=== PATIENT | male | born 1955 | race Caucasian/White ===

== ENCOUNTER 2020-04-17 10:29 | Outpatient (CLI) | payer MEDICARE, SELFPAY ==
--- NOTE | 2020-04-23 14:03 | WPDPFTINT ---
PFT Interpretation PFT Interpretation: This PFT met all criteria for ATS standards and reproducibility FEV/FVC 75% of predicted FEV1 105% of predicted FVC 97% of predicted TLC 129% of predicted or 8.85 liters RV 173% RV/TLC 48% DLCO 84% when adjusted for alveolar volume but not adjusted for hemoglobin Flow volume loops were normal Impression: No significant obstruction but hyperinflation and air trapping are present. This may indicate COPD or Asthma. Clinical correlation is advised.
--- NOTE | 2020-04-27 12:58 | WPDPFTINT ---
PFT Interpretation PFT Interpretation: DOS: 04/17/2020 REQUESTING: Dr. Kristie Kennedy REASON FOR TESTING: Chest pain PULMONARY FUNCTION TESTS Results are reproducible. Spirometry: FEV1 is 105%, FVC 97%, and FEV1% 75%, all normal. No bronchodilator was given. Lung volumes: TLC 129% mild hyperinflation. RV is 173% severe air trapping. Airway resistance is 113%, normal. Diffusion: DLCO is 84%, normal. Flow volume loop: Rounded expiratory limb without a peak, may be due to effort. Inspiratory limb is normal. IMPRESSION: Mild hyperinflation and severe air trapping which are consistent with on obstructive process. No bronchodilator was given. A trial of bronchodilators can be considered. Madai Cruz MD
== END 2020-04-17 10:30 | disposition home or self-care (01) ==
PROVIDERS: PCP Family Medicine; Visit Provider Family Medicine
DX: R07.89 Other chest pain (principal); R06.00 Dyspnea, unspecified; F17.200 Nicotine dependence, unspecified, uncomplicated
CPT/HCPCS: 94375; 94726; 94729

== ENCOUNTER 2022-12-23 10:40 | Outpatient (CLI) | payer MEDICARE, SELFPAY ==
--- NOTE | 2022-12-23 11:05 | ECG_ITS ---
Measurements Intervals [place] Rate: 58 P: 47 MA: 174 QRS: 23 QRSD: 94 T: 43 QT: 402 QTc: 396 Interpretive Statements SINUS BRADYCARDIA OTHERWISE NORMAL ECG NO PREVIOUS ECG AVAILABLE FOR COMPARISON Electronically Signed On 12-23-2022 13:14:28 [employer] by Evaristo Marx M.D.
== END 2022-12-23 10:41 | disposition home or self-care (01) ==
PROVIDERS: PCP Internal Medicine; Visit Provider Nurse Practitioner Family
DX: M79.602 Pain in left arm (principal)
CPT/HCPCS: 93005

== ENCOUNTER 2022-12-27 13:00 | Outpatient (CLI) | payer MEDICARE, SELFPAY ==
--- NOTE | ~2022-12-27 | XR_ITS ---
EXAMINATION:XR_[id number] DATE: 12/27/2022 13:24 INDICATION: Left arm pain TECHNIQUE: AP, lateral, and odontoid views of the cervical spine are provided. COMPARISON: None FINDINGS: The cervicothoracic junction is not well imaged. There are 2 mm of retrolisthesis of C4 on C5. The odontoid process is intact. No fracture is identified. The vertebral body heights are normal. There is mild loss of intervertebral disc space height throughout the cervical spine and mild to mod erate loss of disc space height at C2-3. Small degenerative osteophytes project from the anterior end plates of multiple vertebral bodies. There is multilevel moderate facet and uncovertebral joint osteo arthritis. Prevertebral soft tissues are normal. IMPRESSION: 1. Mild to moderate cervical spondylosis without acute findings. 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
--- NOTE | ~2022-12-27 | XR_ITS ---
EXAMINATION: XR shoulder LT min 2V DATE: 12/27/2022 13:24 INDICATION: Left arm pain. TECHNIQUE: 4 views of left shoulder were obtained. COMPARISON: Chest one view 04/16/2009 FINDINGS: Bone alignment is normal. No acute fracture. There is an old healed fracture deformity of p roximal humeral diaphysis. There is mild glenohumeral joint osteoarthritis and severe acromioclavicul ar joint osteoarthritis. An epidural electrode overlies thoracic spine. IMPRESSION: 1. Polyarticular osteoarthritis. Reviewed, dictated and finalized at location A. [employer] SUPER[employer]OR
== END 2022-12-27 13:01 | disposition home or self-care (01) ==
LOC: ANHLAB 13:03 → ANHIMG 13:04
PROVIDERS: PCP Internal Medicine; Visit Provider Nurse Practitioner Family
DX: M19.012 Primary osteoarthritis, left shoulder (principal); M47.892 Other spondylosis, cervical region
CPT/HCPCS: 72040; 73030